=== PATIENT | male | born 1980 | race Caucasian/White ===

== ENCOUNTER → 2023-01-23 10:02 | Outpatient (CLI) | payer OTHER, SELFPAY | PROVIDERS: Visit Provider Surgery | DX: L97.512 Non-pressure chronic ulcer of other part of right foot with fat layer exposed (principal); L97.522 Non-pressure chronic ulcer of other part of left foot with fat layer exposed; F17.210 Nicotine dependence, cigarettes, uncomplicated; S81.802A Unspecified open wound, left lower leg, initial encounter | CPT/HCPCS: 11042; 87070; 87075; 87077; 87186; 87205; 99203; 99213 ==

== ENCOUNTER → 2023-02-13 09:31 | Outpatient (CLI) | payer OTHER, SELFPAY | PROVIDERS: Visit Provider Surgery | DX: S81.802A Unspecified open wound, left lower leg, initial encounter (principal); S81.801A Unspecified open wound, right lower leg, initial encounter; S61.501A Unspecified open wound of right wrist, initial encounter; F17.210 Nicotine dependence, cigarettes, uncomplicated; F11.21 Opioid dependence, in remission; L53.9 Erythematous condition, unspecified | CPT/HCPCS: 11042 ==

== ENCOUNTER → 2023-02-28 09:57 | Outpatient (CLI) | payer OTHER, SELFPAY | PROVIDERS: Visit Provider Surgery | DX: L97.822 Non-pressure chronic ulcer of other part of left lower leg with fat layer exposed (principal); L98.492 Non-pressure chronic ulcer of skin of other sites with fat layer exposed; L89.622 Pressure ulcer of left heel, stage 2; L97.512 Non-pressure chronic ulcer of other part of right foot with fat layer exposed; L89.512 Pressure ulcer of right ankle, stage 2 | CPT/HCPCS: 11042; 97597; 99213 ==

== ENCOUNTER → 2023-03-20 13:28 | Outpatient (CLI) | payer OTHER, MEDICAID, SELFPAY | PROVIDERS: Visit Provider Surgery | DX: S81.802A Unspecified open wound, left lower leg, initial encounter (principal); L89.622 Pressure ulcer of left heel, stage 2; J44.9 Chronic obstructive pulmonary disease, unspecified; L53.9 Erythematous condition, unspecified | CPT/HCPCS: 11042 ==

== ENCOUNTER → 2023-04-02 13:11 | Outpatient (CLI) | payer OTHER, MEDICAID, SELFPAY ==
--- NOTE | 2023-04-02 | OV.WND_ITS ---
Progress Note Details Patient Name: Woody White Patient Number: [id number] Clinician: Meka Nieto R.N. Patient Date of : 1980 Physician / Plant Operations Coordinator: AllisonKevin Patient SUBJECTIVE Chief Complaint This information was obtained from the Chart. Wound to left leg. Allergies codeine, lithium HPI This information was obtained from the Patient. The following HPI elements were documented for the patient's wound: Location: LLE Duration: 11/03/22 Context: infectious The patient is a 42 year old male with a history of IV drug use and COPD who returns today for follow up of multiple wounds of left lower extremity. The patient had developed infections at fentanyl and xylazine injection sites. He has completed a course of amoxicillin and clindamycin. Patient is receiving dressing changes with Hydrofera blue and DuoDerm. He denies any fever or chills and reports a good appetite. No changes in his overall health. He recently completed rehab and is now on methadone. The patient is a current every day cigarette smoker. On exam today the ulcers are much improved and have no evidence for infection. LABS: 01/23/23: Cultures grew Staphylococcus epidermidis Family History This information was obtained from the Patient. Heart Disease- Mother, Father Lung Disease- Mother Social History This information was obtained from the Patient. Current every day smoker: 1PPD Caffeine Use: 5 day Lives in: private home Marital Status Medical History This information was obtained from the Patient. Patient has a medical history of: Woody White [id number] 1980 Neuropathy Bilateral Knee, torn meniscus Degenerative Disc disease Migraines Substance Use diorder Schizophrenia - 02/17/2023 Additional Information Does patient have a history of Cancer? Yes? Complete all questions.: No Surgical History This information was obtained from the Patient. Patient has a surgical history of: Tooth extractions (6 upper left)- 03/06/2023 Review of Systems (ROS) This information was obtained from the Patient. Complaints and Symptoms Patient com plains of: Co-Morbid Conditions: Smoking Prior Wound History: Drainage, Erythema, Malodor, Pain Respiratory: Cough Patient denies com plaints or sy m ptom s related to: Cardiovascular (Central): Chest Pain, Dyspnea on Exertion Constitutional Symptoms (General Health): Chills, Fever, Loss of Appetite Prior Wound History: Bleeding Respiratory: Shortness of Breath OBJECTIVE Vitals Height/Length: 64 in (162.56 cm), Weight: 170.8 lbs (77.64 kgs), BMI: 29.3, Temperature: 98 ?F (36.67 ?C), Pulse: 72 bpm, Respiratory Rate: 16 breaths/min, Blood Pressure: 108/69 mmHg, Pulse Oximetry: 97 %. Physical Exam Constitutional: Vital signs reviewed and noted. Well developed, well nourished, and in no acute distress. Alert and oriented x3. Respiratory: Even respirations without use of accessory muscles. No intercoastal retractions noted. Even and non labored respiration. Integumentary (Hair, Skin): See wound assessment. Neurological: Sensation: Symmetric function by informal observation. Psychiatric: Orientation to time, place and person: Normal affect with normal thought pattern. Additional Information The patient's potential to heal is: good. StephanieDwaine leonin [id number] 1980 Lower Extremity Assessment Edema Assessment: Left Extremity: Edema is not present Compression Device In Use: No Right Extremity: Edema is not present Compression Device In Use: No Vascular Assessment Left Extremity Colors, hair growth, and conditions: Extremity Color: WNL Hair Growth on Extremity: No Temperature of Extremity: Warm Capilary Refill: < 3 seconds Erythema: No Right Extremity Colors, hair growth, and conditions: Extremity Color: WNL Hair Growth on Extremity: No Temperature of Extremity: Warm Capilary Refill: < 3 seconds Erythema: No Wound Assessment(s) Wound #1 Left Leg is a chronic Full Thickness Infectious and has received a status of Not Healed. Initial wound encounter measurements are 0.9cm length x 0.1cm width x 0.1 cm depth, with an area of 0.09 sq cm and a volume of 0.009 cubic cm. Adipose is exposed. No tunneling has been noted. No sinus tract has been noted. No undermining has been noted. There is a Scant amount of serous drainage noted which has no odor. The patient reports a wound pain of level 1/10. The wound margin is attached Wound bed has Yes, pink, firm, granulation, Yes slough, No eschar, Yes epithelialization. The periwound skin did not exhibit brawny induration, edema, excoriation, induration, callus, crepitus, fluctuance, rash, maceration, atrophie vannesa, cyanosis, ecchymosis, erythema, hemosiderosis, pallor and rubor. The periwound skin was not friable, dry/scaly and moist. The temperature of the periwound skin is WNL. Periwound skin does not exhibit signs or symptoms of infection. Local Pulse is Palpable. General Notes Proximal satellite: 0.8cm x 0.3cm x 0.2cm Distal satellite: 0.6cm x 0.2cm x 0.1cm Additional Information Limited to breakdown of skin: No ASSESSMENT Active Problems ICD-10 (Encounter Diagnosis) L97.512 - Non-pressure chronic ulcer of other part of right foot with fat layer exposed (Encounter Diagnosis) L97.522 - Non-pressure chronic ulcer of other part of left foot with fat layer exposed (Encounter Diagnosis) L98.499 - Non-pressure chronic ulcer of skin of other sites with unspecified severity (Encounter Diagnosis) L97.311 - Non-pressure chronic ulcer of right ankle limited to breakdown of skin (Encounter Diagnosis) L97.412 - Non-pressure chronic ulcer of right heel and midfoot with fat layer exposed General Notes multiple ulcers at previous injection sites much improved, right wrist healed, no active infection Woody White [id number] 1980 the following factors have been identified that may affect wound healing: Devitalized tissue Biofilm Infection moisture imbalance Goals: Remove devitalized tissue Remove and prevent biofilm Treat infection Wound closure Restore moisture balance Plan: debridement, continue dressing changes with Hydrofera blue and DuoDerm, follow up in 2 weeks for a recheck. Continue protein supplementation. PROCEDURES Wound #1 Wound #1 (Infectious) is located on the left leg. A skin/subcutaneous tissue level surgical debridement with a total area debrided of 0.09 sq cm. was performed by Kevin Cooper MD. Subcutaneous was removed along with devitalized tissue: biofilm and slough. The following instrument(s) were used: curette. Pain control was achieved using EMLA lidocaine/prilocaine 2.5%/2.5%. A time out was conducted prior to the start of the procedure. A minimal amount of bleeding was controlled with pressure. The procedure was tolerated well with a pain level of 0 throughout and a pain level of 0 following the procedure. Post Debridement Measurements: 0.9cm length x 0.1cm width x 0.2cm depth; with an area of 0.09 sq cm and a volume of 0.018 cubic cm. Additional Information Muscle fascia or bone removed and sent to pathology?: No PLAN Wound Orders: Wound #1 Left Leg Anesthetic Topical Xylocaine to wound bed Hygiene May shower with wound protected, using a cast protector or plastic bag and tape Cleanser Cleanse Wound with normal saline Topical Treatments Other order - Hydrogel to wound bed. Dressings Primary dressing - Hydrofera blue ready transfer foam cut to cover. Cover and secure with - Duoderm. Change Dressing - Three times a week. Physician Review: Reviewed and evaluated labs. Discussed the Plan of Care @ bedside with - the patient I, as the physician, have reviewed the orders scribed by the center RN's and agree. Additional Orders: Woody White [id number] 1980 Dietary Increased protein Other Instructions: - Stop applying Iodine to wound bed. Follow-Up Appointments Return Appointment - Two weeks. Other information: If you develop fever, chills, increased pain, drainage, redness or swelling please call our office. If after hours, respond to the ER. Should you experience any significant changes in your wound(s) or have any questions regarding your home care instructions please contact the wound center @ [phone]. If after hours, contact your primary care physician or go to the hospital emergency room. Scribing Attestation I attest, as the nurse, that I scribed these orders for the physician. Plan of Care: 01. ENSURE/ESTABLISH OPTIMAL BLOOD FLOW : - Complete lower extremity assessment - Perform non-invasive vascular testing (i.e. STAS) and document findings. Consider repeating when wound healing <40% after 30 days of wound care. 02. ASSESS FOR/TREAT INFECTION : - Evaluate for signs and symptoms of infection and document findings. 03. DEBRIDE WEEKLY OR MORE OFTEN PRN : - Evaluate patient in center weekly to assess wound bed and margins for need for debridement. - Mechanical debridement: Stimulate and/or maintain acute phase of wound healing by reducing bacterial burden and devitalized/non-viable tissue. 04. OPTIMIZE GLUCOSE CONTROL and NUTRITION : - Reviewed, not applicable 05. OFFLOADING PLAN : - Reviewed, not applicable 06. OPTIMIZE HOST FACTORS: - Assess and review patient history for wound etiology, co-morbid conditions, medication regime, and smoking history. 07. DRESSING SELECTION : - Evaluate for dressing-related factors, such as availability, wear time, adaptability and use to better optimize wound healing and patient compliance. - Choose topical treatments and/or dressing based on wound type and appearance, periwound skin condition, wound size and depth, anatomic location, volume of exudate, edema in the lower extremities, and risk or presence of infection. 08. ADVANCED MODALITIES : - Evaluate for appropriateness of Cellular Tissue Product therapy. 09. FALL PREVENTION : - Complete fall assessment. 10. PAIN MANAGEMENT : - Complete pain assessment 11. MEASURABLE GOALS for Wound Healing and/or Hyperbaric Oxygen Therapy : - Decrease Wound Dimensions - Wound Closure - Improve quality of life 12. DURATION/FREQUENCY of Wound Care Visits : - 2x monthly for next 30 days Electronic Signature(s) Woody White [id number] 1980 Signed By: Date: Kevin Cooper MD 04/02/2023 14:31:59 (PT) Entered By: Kevin Cooper MD on 04/02/2023 14:31:22 (PT) Woody White [id number] 1980
== END ==
PROVIDERS: Visit Provider Surgery
DX: S81.802A Unspecified open wound, left lower leg, initial encounter (principal)
CPT/HCPCS: 11042; 99213

== ENCOUNTER → 2023-06-28 14:33 | Outpatient (CLI) | payer OTHER, MEDICAID, SELFPAY ==
[2023-06-28 16:15] LABS: Influenza A - CEPHEID Flu A NEGATIVE (NEGATIVE); Influenza B - CEPHEID Flu B NEGATIVE (NEGATIVE); Respiratory Syncytial Virus Negative (Negative)
[2023-06-28 16:16] LABS: COVID-19 CEPHEID 4-PLEX PCR Negative (Negative)
== END ==
PROVIDERS: Visit Provider Registered Nurse
DX: Z20.828 Contact with and (suspected) exposure to other viral communicable diseases (principal)
CPT/HCPCS: 0241U